=== PATIENT | male | born 1970 | race Caucasian/White ===

== ENCOUNTER 2017-06-20 07:10 | Day surgery (SDC) | payer OTHER ==
[~2017-06-20] VITALS: Ht 185.4 cm; Wt 99.8 kg
[2017-06-20] MEDS ORDERED: ULTRAM50 MG PO (07:22)
--- NOTE | 2017-06-20 08:42 | NUR ---
PT RETURNS TO DAY SURGERY AFTER BEING CONNECTED TO THE MONITORS IN OR AND FOUND TO BE IN AFIB. 5-LEAD MONITOR CONNECTED AND PATIENT WILL CONTINUE TO BE MONITORED AND UPDATED TO THE PLAN OF CARE.
--- NOTE | 2017-06-20 09:12 | EKG ---
[facility] [address] [facility] [address] [place] [address] Signed Atrial fibrillation Rightward axis Septal infarct , age undetermined Abnormal ECG No previous ECGs available New compared to EKG from 06/14/17 Read By Tigre Mcmanus Confirmed by BRET MCMANUS MD ([id number]), photograph editor Pia Fischer ([id number]) on 06/20/2017 9:12:18 AM Electronically Signed By: BRET MCMANUS MD 06/20/17 0912 PATIENT NAME: KOKOMAYTE Electrocardiogram DATE OF : 68 PHYSICIAN: BRET MCMANUS MD REPORT #: [id number] REPORT IS CONFIDENTIAL AND NOT TO BE RELEASED WITHOUT AUTHORIZATION
--- NOTE | 2017-06-20 09:44 | NUR ---
CALL REPORT GIVEN TO TRACY ROSS AT [facility].
== END 2017-06-20 09:15 | disposition home or self-care (01) ==
LOC: OPS 07:10 → DS 07:11 → OPS 08:00
DX: M25.511 Pain in right shoulder (principal); I48.91 Unspecified atrial fibrillation; Z53.09 Procedure and treatment not carried out because of other contraindication; Z87.891 Personal history of nicotine dependence
CPT/HCPCS: 64415; 76942; 93005; 93010; J2250; J2405; J2704; J2765; J2795; J3010; J7120

== ENCOUNTER 2021-10-26 17:01 | Emergency (ER) | payer OTHER ==
[~2021-10-26] VITALS: Ht 185.4 cm; Wt 95.2 kg
[~2021-10-26 17:01] MED LIST: ADULT LOW DOSE81 MG PO; SERTRALINE HCL100 MG PO; ULTRAM50 MG PO
[2021-10-26] MEDS ORDERED: COREG12.5 MG (17:36)
[2021-10-26] MEDS ORDERED: FLECAINIDE ACE100 MG (17:36)
[2021-10-26] MEDS ORDERED: LEXAPRO20 MG (17:37)
[2021-10-26] MEDS ORDERED: VISTARIL25 MG (17:38)
--- NOTE | 2021-10-28 15:51 | EKG ---
[facility] [address] [place] [address] Signed Sinus bradycardia Otherwise normal ECG When compared with ECG of 20-JUN-2017 08:27, Sinus rhythm has replaced Atrial fibrillation Criteria for Septal infarct are no longer present Confirmed by SHERYL LEON MD ([id number]) on 10/28/2021 3:51:20 PM Electronically Signed By: SHERYL LEON MD 10/28/21 1551 PATIENT NAME: KOKOMAYTE Electrocardiogram DATE OF : 68 PHYSICIAN: SHERYL LEON MD REPORT #: [id number] REPORT IS CONFIDENTIAL AND NOT TO BE RELEASED WITHOUT AUTHORIZATION
== END 2021-10-26 19:08 | disposition home or self-care (01) ==
LOC: ED 17:01
DX: R07.89 Other chest pain (principal); H53.8 Other visual disturbances; I48.91 Unspecified atrial fibrillation; I10 Essential (primary) hypertension; J45.909 Unspecified asthma, uncomplicated; Z88.8 Allergy status to other drugs, medicaments and biological substances; Z79.899 Other long term (current) drug therapy; Z79.82 Long term (current) use of aspirin
CPT/HCPCS: 36415; 71045; 80053; 83735; 84484; 85025; 93005; 93010; 99285-25

== ENCOUNTER 2023-04-02 10:51 | Day surgery (SDC) | payer OTHER ==
[~2023-04-02] VITALS: Ht 185.4 cm; Wt 108.9 kg
[~2023-04-02 10:51] MED LIST changes: +COREG12.5 MG; +FLECAINIDE ACE100 MG; +IBLOOD GLUCOSE TEST STRIP 1 EA TEST VI PRN; +LACTATED RINGER'S 1,000 ML IV SCH; +LEXAPRO20 MG; +LIDOCAINE HCL 1% 5 ML SDV INJ ONE; +MIDAZOLAM HCL 5 MG/5 ML VIAL IV PRN; +MIDAZOLAM HCL 5 MG/5 ML VIAL ONE; +PAXIL20 MG PO; +SINGULAIR10 MG PO; +TOPROL XL50 MG PO; +VAZALORE81 MG PO; +VISTARIL25 MG; +VITAMIN D310 MC4 PO; +fentaNYL citrate 100 MCG/2 ML VIAL IV PRN; +fentaNYL citrate 100 MCG/2 ML VIAL ONE
[2023-04-02 11:01] VITALS: BP 130/83
[2023-04-02] MEDS ORDERED: PROZAC10 MG PO (11:05)
--- NOTE | 2023-04-02 12:59 | NUR ---
04/02/23 Isis9 Tyesha Tiwari 1251 PT TO PACU ALERT AND AWAKE DENIES PAIN.
[2023-04-02 13:12] VITALS: BP 110/80
--- NOTE | 2023-04-05 17:30 | OR ---
[facility] [address] [place], [place] [address] Signed DATE OF OPERATION: 04/02/2023 SURGEON: Esha Pardo MD PREOPERATIVE DIAGNOSES: 1. Heme-positive stool. 2. Family history of colon cancer (uncle), other family members with polyps. POSTOPERATIVE DIAGNOSIS: Normal colon to cecum. PROCEDURE: Total colonoscopy to cecum. ANESTHESIA: Intravenous sedation; fentanyl 100 mcg and Versed 5 mg. INDICATION: This 52-year-old white man is a prisoner at [facility] and a patient of SHAGUFTA Crum. He was noted to have heme-positive stool on testing. He has had no overt blood per rectum or hematemesis. He has no upper gastrointestinal symptoms and no symptoms of abdominal pain, constipation, or diarrhea. He is admitted at this time to undergo colonoscopy to assess for heme-positive stools. He understands the risk of bleeding, infection, and perforation related to colonoscopy and wished to proceed. FINDINGS: The prep was good. Complete colonoscopy was undertaken to the cecum without question. He had no evidence of polyps, diverticular formation, colitis, or cancer. DESCRIPTION OF PROCEDURE: The patient was brought to the endoscopy suite and placed in the lateral decubitus position, given intravenous sedation to the point of slurred speech and nystagmus. Full cardiopulmonary monitoring was maintained. Digital rectal examination was performed showing no sign of anorectal abnormality. An Olympus video colonoscope was passed in the rectum and manipulated throughout the colon ultimately intubating the cecum itself. The ileocecal valve and appendiceal orifice were normal. The scope was withdrawn from that point and examination showed no sign of abnormality; specifically no polyps, diverticular formation, colitis, or cancer. Retroflexed view of the rectum was normal as well. The scope was removed and the Electronically Signed By: ESHA PARDO MD 04/05/23 6952 PATIENT NAME: MAYTE SUTHERLAND OPERATIVE REPORT DATE OF : 68 REPORT #: [id number] PHYSICIAN: ESHA PARDO MD PCP: MIRACLE SZYMANSKI REPORT IS CONFIDENTIAL AND NOT TO BE RELEASED WITHOUT AUTHORIZATION [facility] [address] [place] [id number] Signed patient was taken to the recovery room in good condition. CONCLUDING DIAGNOSIS: Normal colon to cecum. PLAN: If fecal occult blood test is repeated and blood is noted, would recommend upper endoscopy be undertaken. He will return to the ongoing care of Zeynep Szymanski otherwise. MD SUZY Martínez/ABDULLAHIL /[id number] cc: SHAGUFTA Lu Copies: MIRACLE SZYMANSKI ~ Electronically Signed By: ESHA PARDO MD 04/05/23 1730 PATIENT NAME: MAYTE SUTHERLAND OPERATIVE REPORT DATE OF : 68 REPORT #: [id number] PHYSICIAN: ESHA PARDO MD PCP: MIRACLE SZYMANSKI REPORT IS CONFIDENTIAL AND NOT TO BE RELEASED WITHOUT AUTHORIZATION
== END 2023-04-02 13:15 | disposition home or self-care (01) ==
LOC: OPS 10:51 → DS 10:53 → OPS 12:15 → DS 12:15 → OPS 13:15
PROVIDERS: ATTEND Surgery
PROC: 0DJD8ZZ Inspection of Lower Intestinal Tract, Via Natural or Artificial Opening Endoscopic (ICD-10-PCS; principal; 2023-04-02 12:15)
DX: R19.5 Other fecal abnormalities (principal); Z80.0 Family history of malignant neoplasm of digestive organs; Z83.719 Family history of colon polyps, unspecified; Z86.79 Personal history of other diseases of the circulatory system
CPT/HCPCS: 99153; G0500; J2250; J3010; J7121